=== PATIENT | female | born 1975 | race Asian ===

== ENCOUNTER 2018-03-25 12:55 | Inpatient (IN) | payer OTHER ==
[~2018-03-25] VITALS: Ht 175.3 cm; Wt 96.0 kg
--- NOTE | 2018-03-25 13:03 | NUR ---
PT BIB EMS INTUBATED FOR COMPLAINT OF HEADACHE AND SUDDEN-ONSET R PUPIL DILATION AND POSTURING AND LOSS OF RESPIRATORY EFFORT. SB[facility] HAND-OFF REPORT RECEIVED FROM [facility].
[2018-03-25] MEDS: PLEASE ENTER HEIGHT AND WEIGHT MC SCH ×2 (13:18→13:23)
[2018-03-25 13:22] LABS: BASOPHILS # (AUTO) 0.01 x10^3/uL (0-0.1); BASOPHILS % (AUTO) 0 % (0-1); EOSINOPHILS # (AUTO) 0.12 x10^3/uL (0-0.4); EOSINOPHILS % (AUTO) 1 % (1-7); FIO2 100 %; LYMPHOCYTES # (AUTO) 3.65 x10^3/uL (1-3.4); LYMPHOCYTES % (AUTO) 20 % (22-44); MD NO; MEAN CORPUSCULAR HEMOGLOBIN 29.3 pg (27.0-34.8); MEAN CORPUSCULAR HGB CONC 33.4 g/dL (32.4-35.8); MEAN CORPUSCULAR VOLUME 87.7 fL (80-100); MEAN PLATELET VOLUME 8.6 fL (7.4-10.4); MONOCYTES # (AUTO) 0.61 x10^3/uL (0.2-0.8); MONOCYTES % (AUTO) 3 % (2-9); NEUTROPHILS # (AUTO) 13.52 x10^3/uL (1.8-6.8); NEUTROPHILS % (AUTO) 76 % (42-75); PLATELET COUNT 483 x10^3/uL (130-400); RED BLOOD COUNT 4.95 x10^6/uL (3.82-5.3); RED CELL DISTRIBUTION WIDTH 13.6 % (9.6-15.2)
--- NOTE | 2018-03-25 13:26 | NUR ---
NICARDIPINE DRIP STARTED. CT CALLED. AWAITING RT TO GO TO CT.
[2018-03-25] MEDS ORDERED: PLEASE ENTER ALLERGIES MC SCH (13:30)
[2018-03-25] MEDS ORDERED: LABETALOL 20 MG/4 ML IVPush ONE (13:30)
[2018-03-25] MEDS ORDERED: SODIUM CHLORIDE FLUSH 10ML SYR IVF ONE (13:30)
[2018-03-25 13:32] LABS: INTERNATIONAL NORMALIZED RATIO 1.07 (0.93-1.1); PROTHROMBIN TIME 11.3 Seconds (9.6-11.5)
[2018-03-25 13:34] LABS: ALBUMIN 3.9 g/dL (3.4-5.0); ANION GAP 14 mmol/L (5-15); CALCIUM 8.8 mg/dL (8.5-10.1); CHLORIDE 105 mmol/L (98-107)
--- NOTE | 2018-03-25 13:39 | NUR ---
PT TO CT AT THIS TIME.
[2018-03-25 13:42] LABS: ALANINE AMINOTRANSFERASE 48 U/L (12-78); ALKALINE PHOSPHATASE 67 U/L (45-117); BILIRUBIN,TOTAL 0.5 mg/dL (0.2-1.0); CREATININE 0.79 mg/dL (0.55-1.02); TOTAL PROTEIN 7.9 g/dL (6.4-8.2)
[2018-03-25] MEDS ORDERED: OMNIPAQUE 350 MG/ML, 100ML BOTTLE ONE (13:58)
--- NOTE | 2018-03-25 14:00 | NUR ---
PATIENT AND THIS RN BACK FROM CT. CT AND CTA WAS COMPLETED. VS STABLE. BP DOWN AND AT 139/89 NOW. NICARDIPINE DRIP CONTINUES.
--- NOTE | 2018-03-25 14:50 | NUR ---
[facility] TELEPHONE REPORT GIVEN TO IMANI BOYD IN ICU. DR. HATFIELD PREPARING TO PERFORM CRANIOTOMY.
[2018-03-25 14:51] VITALS: BP 130/90
[2018-03-25] MEDS ORDERED: BACITRACIN 50,000 UNIT ONE (14:54)
[2018-03-25] MEDS ORDERED: BUPIVACAINE/PF-EPI 0.5% 1:200K ONE (14:54)
[2018-03-25] MEDS ORDERED: THROMBIN 5,000 UNIT VIAL TP ONE (14:54)
[2018-03-25] MEDS ORDERED: FENTANYL PF 250 MCG/5ML ONE (15:10)
[2018-03-25] MEDS ORDERED: MIDAZOLAM 1 MG/ML, 2ML ONE (15:10)
--- NOTE | 2018-03-25 15:10 | NUR ---
[facility] CALLED BACK. CASE #[id number]
[2018-03-25] MEDS: SODIUM CHLORIDE 0.9% 1,000 ML IV SCH (15:12)
[2018-03-25] MEDS ORDERED: CEFUROXIME 1.5 GM ONE (15:13)
[2018-03-25] MEDS ORDERED: METOPROLOL 1 MG/ML, 5ML ONE (15:22)
[2018-03-25] MEDS ORDERED: FUROSEMIDE 20 MG/2 ML ONE (15:28)
[2018-03-25] MEDS ORDERED: MANNITOL PMX 20% 500 ML ONE (15:28)
[2018-03-25] MEDS ORDERED: INSTRUCTION SEE COMMENTS XX ONE (15:30)
[2018-03-25] MEDS ORDERED: BISACODYL 10 MG SUPP PR PRN (15:30)
[2018-03-25] MEDS ORDERED: DOCUSATE 100 MG CAPSULE PO PRN (15:30)
[2018-03-25] MEDS ORDERED: ROCURONIUM 10MG/ML,5ML ONE ×2 (16:25)
[2018-03-25] MEDS ORDERED: PROPOFOL 50 ML ONE (16:25)
[2018-03-25] MEDS ORDERED: FENTANYL PF 100 MCG/2ML ONE (16:28)
[2018-03-25] MEDS ORDERED: PROPOFOL 100 ML IV ONE (17:23)
[2018-03-25] MEDS: VECURONIUM 50 MG in SODIUM CHLORIDE 0.9% 250 ML IV PRN (18:16)
[2018-03-25] MEDS ORDERED: morphine SULFATE 10 MG/ML, 1ML IV PRN (19:00)
[2018-03-25] MEDS ORDERED: NS + 20MEQ KCL 1,000 ML IV SCH (19:00)
[2018-03-25] MEDS ORDERED: ONDANSETRON 2MG/ML, 2ML IV PRN (19:00)
[2018-03-25] MEDS ORDERED: ACETAMINOPHEN 325 MG TABLET PO PRN (19:00)
[2018-03-25] MEDS ORDERED: ACETAMINOPHEN 650 MG SUPP PR PRN (19:00)
[2018-03-25] MEDS: CEFUROXIME 1.5 GM in SODIUM CHLORIDE 0.9% 50 ML IVPB SCH (20:17)
[2018-03-25] MEDS: AMPICILLIN/SULBACTAM 3 GM in SODIUM CHLORIDE 0.9% 100 ML IV SCH (20:55)
[2018-03-25] MEDS: PROPOFOL 100 ML IV PRN (20:56)
[2018-03-25] MEDS ORDERED: ATORVASTATIN 80 MG TABLET PO SCH (21:00)
[2018-03-25] MEDS ORDERED: FENTANYL PF 2,500 MCG in SODIUM CHLORIDE 0.9% 200 ML IV PRN ×2 (21:07→21:13)
[2018-03-25] MEDS ORDERED: PROPOFOL 100 ML IV PRN (21:13)
[2018-03-25] MEDS ORDERED: DEXTROSE 4 GM TAB.CHEW PO PRN (21:30)
[2018-03-25] MEDS ORDERED: PHARMACY MAY ADJ FOR RENAL FX MC SCH ×2 (21:30)
[2018-03-25] MEDS ORDERED: DEXTROSE 50%, 50ML SYRINGE IVPush PRN (21:30)
[2018-03-25] MEDS ORDERED: GLUCAGON 1 MG IM PRN (21:30)
[2018-03-25] MEDS ORDERED: FENTANYL PF 100 MCG/2ML IVPush PRN ×2 (21:30)
[2018-03-25] MEDS ORDERED: LIDOCAINE-MPF 1%, 2ML ENDO PRN ×2 (21:30)
[2018-03-25 22:06] LABS: FIO2 50 %
[2018-03-25 22:09] LABS: BASOPHILS # (AUTO) 0.07 x10^3/uL (0-0.1); BASOPHILS % (AUTO) 1 % (0-1); EOSINOPHILS # (AUTO) 0.01 x10^3/uL (0-0.4); EOSINOPHILS % (AUTO) 0 % (1-7); LYMPHOCYTES # (AUTO) 1.15 x10^3/uL (1-3.4); LYMPHOCYTES % (AUTO) 10 % (22-44); MD NO; MEAN CORPUSCULAR HEMOGLOBIN 29.7 pg (27.0-34.8); MEAN CORPUSCULAR VOLUME 87.5 fL (80-100); MEAN PLATELET VOLUME 8.5 fL (7.4-10.4); MONOCYTES % (AUTO) 5 % (2-9); NEUTROPHILS # (AUTO) 10.07 x10^3/uL (1.8-6.8); NEUTROPHILS % (AUTO) 85 % (42-75); PLATELET COUNT 401 x10^3/uL (130-400); RED BLOOD COUNT 4.52 x10^6/uL (3.82-5.3); RED CELL DISTRIBUTION WIDTH 13.7 % (9.6-15.2)
[2018-03-25 22:16] LABS: ANION GAP 10 mmol/L (5-15); CALCIUM 7.9 mg/dL (8.5-10.1); CHLORIDE 107 mmol/L (98-107); CREATININE 0.56 mg/dL (0.55-1.02); TRIGLYCERIDES 136 mg/dL (50-200)
[2018-03-26] MEDS ORDERED: PHARMACY INSTRUCTION MC PRN (02:00)
[2018-03-26] MEDS: VECURONIUM 50 MG in SODIUM CHLORIDE 0.9% 250 ML IV PRN (02:14)
[2018-03-26] MEDS ORDERED: SODIUM CHLORIDE IV PRN (02:30)
[2018-03-26] MEDS: AMPICILLIN/SULBACTAM 3 GM in SODIUM CHLORIDE 0.9% 100 ML IV SCH ×2 (03:12→09:00)
[2018-03-26] MEDS: CEFUROXIME 1.5 GM in SODIUM CHLORIDE 0.9% 50 ML IVPB SCH (04:04)
[2018-03-26] MEDS: PROPOFOL 100 ML IV PRN ×3 (04:24→11:23)
[2018-03-26] MEDS: SODIUM CHLORIDE 0.9% 1,000 ML IV SCH (04:32)
[2018-03-26 05:04] LABS: BASOPHILS # (AUTO) 0.02 x10^3/uL (0-0.1); BASOPHILS % (AUTO) 0 % (0-1); EOSINOPHILS # (AUTO) 0.04 x10^3/uL (0-0.4); EOSINOPHILS % (AUTO) 0 % (1-7); LYMPHOCYTES # (AUTO) 1.53 x10^3/uL (1-3.4); LYMPHOCYTES % (AUTO) 14 % (22-44); MD NO; MEAN CORPUSCULAR HEMOGLOBIN 29.5 pg (27.0-34.8); MEAN CORPUSCULAR HGB CONC 33.7 g/dL (32.4-35.8); MEAN CORPUSCULAR VOLUME 87.6 fL (80-100); MEAN PLATELET VOLUME 8.6 fL (7.4-10.4); MONOCYTES # (AUTO) 0.64 x10^3/uL (0.2-0.8); MONOCYTES % (AUTO) 6 % (2-9); NEUTROPHILS # (AUTO) 8.98 x10^3/uL (1.8-6.8); NEUTROPHILS % (AUTO) 80 % (42-75); PLATELET COUNT 342 x10^3/uL (130-400); RED BLOOD COUNT 4.35 x10^6/uL (3.82-5.3); RED CELL DISTRIBUTION WIDTH 13.4 % (9.6-15.2)
[2018-03-26 05:07] LABS: ALBUMIN 3.1 g/dL (3.4-5.0); ANION GAP 11 mmol/L (5-15); CALCIUM 7.2 mg/dL (8.5-10.1); CHLORIDE 113 mmol/L (98-107)
[2018-03-26 05:10] LABS: ALANINE AMINOTRANSFERASE 42 U/L (12-78); CHOLESTEROL, TOTAL 143 mg/dL (140-239); CREATININE 0.41 mg/dL (0.55-1.02); TRIGLYCERIDES 156 mg/dL (50-200); VLDL CHOLESTEROL 31 mg/dL (0-25)
[2018-03-26 05:11] LABS: ALKALINE PHOSPHATASE 58 U/L (45-117); BILIRUBIN,TOTAL 0.7 mg/dL (0.2-1.0); CHOL/HDL RATIO 3.3; HDL CHOL % 30 % (28-40); HDL CHOLESTEROL (DIRECT) 43 mg/dL (40-60); LDL CHOLESTEROL,CALCULATED 69 mg/dL (54-169); LDL/HDL RATIO 1.6 (0.5-3.0); TOTAL PROTEIN 6.6 g/dL (6.4-8.2)
[2018-03-26 05:34] LABS: HEMOGLOBIN A1C 5.4 % (4.2-6.3)
[2018-03-26 05:52] LABS: MICROSCOPIC AUTO
[2018-03-26 05:54] LABS: CULTURE INDICATED? NO
[2018-03-26 06:17] LABS: AMPHETAMINE SCREEN, URINE Negative (Negative); BARBITURATE SCREEN, URINE Negative (Negative); BENZODIAZEPINE SCREEN, URINE Positive (Negative); CANNABINOID SCREEN, URINE Negative (Negative); COCAINE SCREEN, URINE Negative (Negative); METHADONE SCREEN, URINE Negative (Negative); OPIATE SCREEN, URINE Negative (Negative)
[2018-03-26] MEDS ORDERED: INSULIN LISPRO 100 UNITS/ML, PEN SQ-INSULIN SCH (07:00)
[2018-03-26] MEDS ORDERED: POTASSIUM CHLORIDE 40 MEQ in SODIUM CHLORIDE 0.9% 100 ML IV ONE (08:30)
[2018-03-26] MEDS ORDERED: MAGNESIUM SULFATE 4 GM in SODIUM CHLORIDE 0.9% 100 ML IV ONE (08:30)
[2018-03-26] MEDS ORDERED: PROPOFOL (08:52)
[2018-03-26] MEDS ORDERED: VECURONIUM (08:52)
[2018-03-26] MEDS ORDERED: Fentanyl (08:52)
[2018-03-26] MEDS ORDERED: NICARDIPINE (08:52)
[2018-03-26] MEDS ORDERED: ATOR-2 PO (08:52)
[2018-03-26] MEDS ORDERED: NORMAL SALINE (08:52)
[2018-03-26] MEDS ORDERED: Unasyn (08:52)
[2018-03-26] MEDS ORDERED: SODIUM CHLORIDE FLUSH 10ML SYR IVF SCH (09:00)
== END 2018-03-26 12:33 | disposition short-term general hospital (02) | DRG 23 ==
LOC: ED 13:45 → EDIP 13:57 → CCU 17:11
PROVIDERS: ADMIT Hospitalist; ATTEND Hospitalist
PROC: 00U20KZ Supplement Dura Mater with Nonautologous Tissue Substitute, Open Approach (ICD-10-PCS; 2018-03-25)
PROC: 00C40ZZ Extirpation of Matter from Intracranial Subdural Space, Open Approach (ICD-10-PCS; principal; 2018-03-25 14:45)
PROC: 0T9B70Z Drainage of Bladder with Drainage Device, Via Natural or Artificial Opening (ICD-10-PCS; 2018-03-26)
DX: I60.11 Nontraumatic subarachnoid hemorrhage from right middle cerebral artery (principal); J96.00 Acute respiratory failure, unspecified whether with hypoxia or hypercapnia; G93.5 Compression of brain; J69.0 Pneumonitis due to inhalation of food and vomit; G93.40 Encephalopathy, unspecified; I16.1 Hypertensive emergency; Z99.11 Dependence on respirator [ventilator] status; E83.42 Hypomagnesemia; E87.6 Hypokalemia; I10 Essential (primary) hypertension; I67.1 Cerebral aneurysm, nonruptured; Z83.3 Family history of diabetes mellitus; I62.00 Nontraumatic subdural hemorrhage, unspecified; H57.04 Mydriasis; R73.9 Hyperglycemia, unspecified
CPT/HCPCS: 36415; 36600; 70450; 70496; 70498; 71045; 80048; 80053; 80061; 80307; 81001; 82803; 83036; 83605; 83735; 83930; 84100; 84443; 84478; 84484; 84703; 85025; 85610; 85730; 86850; 86900; 87070; 87075; 87081; 87205; 93005; 94002; 94003; 96374; 99291; G0378; J0295; J0697; J2250; J2704; J3010; J3475; J3480; Q9967; J1940; J3490; J7050